=== PATIENT | male | born 1940 | race Caucasian/White ===

== ENCOUNTER 2020-09-25 19:17 | Inpatient (IN) | payer MEDICARE, BC ==
[~2020-09-25] VITALS: Ht 185.4 cm; Wt 83.9 kg
[2020-09-25] MEDS ORDERED: TRAZ-182 PO (20:39)
[2020-09-25] MEDS ORDERED: TAMS-3 PO (20:39)
[2020-09-25] MEDS ORDERED: BIMA2.5D5 EACHEYE (20:39)
[2020-09-25] MEDS ORDERED: ESCI-9 PO (20:39)
[2020-09-25] MEDS ORDERED: METF-495 PO (20:39)
[2020-09-25] MEDS ORDERED: ACET-73 PO (20:39)
[2020-09-25] MEDS ORDERED: ASCO500C18 PO (20:39)
[2020-09-25] MEDS ORDERED: NITR0.4T SL (20:39)
[2020-09-25] MEDS ORDERED: DIVA250T4 PO (20:39)
[2020-09-25] MEDS ORDERED: LORA-258 PO (20:39)
[2020-09-25] MEDS ORDERED: NITR100C11 PO (20:39)
[2020-09-25] MEDS ORDERED: ATOR40TA PO (20:39)
[2020-09-25] MEDS ORDERED: BRIM5DRO2 OP (20:39)
[2020-09-25] MEDS ORDERED: VIT1CAPS44 PO (20:39)
[2020-09-25] MEDS ORDERED: ASPI81TA31 PO (20:39)
[2020-09-25] MEDS ORDERED: ACET-2154 PO (20:39)
[2020-09-25] MEDS ORDERED: vitamin d PO (20:39)
[2020-09-25] MEDS ORDERED: PRIM50TA27 PO (20:39)
[2020-09-25 21:05] LABS: CARBON DIOXIDE 29 mmol/L (21-32); CHLORIDE 105 mmol/L (98-107); CREATININE 1.1 mg/dL (0.6-1.3); GLUCOSE 102 mg/dL (74-106); HEMATOCRIT 44.4 % (36.7-47.1); MEAN CORPUSCULAR HEMOGLOBIN 30.9 uug (23.8-33.4); MEAN CORPUSCULAR VOLUME 93.2 fL (73.0-96.2); PLATELET COUNT (AUTO) 150 K/uL (152-348); POTASSIUM 4.1 mmol/L (3.5-5.1); UREA NITROGEN, BLOOD 26 mg/dL (7-18)
[2020-09-25 21:09] LABS: ETHANOL < 3 MG/DL (0-0)
[2020-09-25 21:11] LABS: ALANINE AMINOTRANSFERASE 15 U/L (16-63); ALKALINE PHOSPHATASE 58 U/L (50-136); ASPARTATE AMINOTRANSFERASE 16 U/L (15-37); BILIRUBIN,DIRECT 0.1 mg/dL (0.0-0.2); BILIRUBIN,TOTAL 0.4 mg/dL (0.2-1.0); CREATINE KINASE, TOTAL 60 U/L (39-308); TOTAL PROTEIN, SERUM 6.8 g/dL (6.4-8.2)
[2020-09-25 21:19] LABS: ACETAMINOPHEN < 2.0 ug/mL (10-30)
[2020-09-25] MEDS ORDERED: breo INH (21:19)
[2020-09-25] MEDS ORDERED: MONT10TA22 PO (21:19)
[2020-09-25] MEDS ORDERED: LISI10TA29 PO (21:19)
[2020-09-25] MEDS ORDERED: RIVA20TA PO (21:19)
[2020-09-25] MEDS ORDERED: ALBU18HF2 IH (21:19)
[2020-09-25] MEDS ORDERED: AZEL23SP NS (21:19)
--- NOTE | 2020-09-25 21:58 | NUR ---
Charge nurse left voicemail message with Adalgisa regarding the need for PET team evaluation.
[2020-09-26] MEDS ORDERED: MAG HYDROX/AL HYDROX/SIMETH 30 ML LIQUID UDC PO PRN (00:45)
[2020-09-26] MEDS ORDERED: MAGNESIUM HYDROXIDE 30 ML LIQUID UDC PO PRN (00:45)
[2020-09-26] MEDS ORDERED: BLOOD SUGAR DIAGNOSTIC 1 EACH STRIP VI ONE (00:45)
--- NOTE | 2020-09-26 01:54 | NUR ---
PATIENT RECEIVED FROM ER VIA [facility] AT 0007. PATIENT ALERT/ORIENTED TO SELF, PATIENT DISORGANIZED, CONFUSED, AND CONFUSED. PATIENT IS UNSTEADY REQUIRES MAX ASSISTANCE. PATIENT RECEIVED A SHOWER, BODY ASSESSMENT RENDERED AND SKIN INTACT. PATIENT IS UNABLE TO ANSWER SIMPLE QUESTIONS ON SELF. PATIENT HAS FLAT AFFECT IS COOPERATIVE WITH CONSTANT REDIRECTION. NO CONTRABAND ONLY WITH EYE GLASSES. SAFE ENVIRONMENT PROVIDED, FREQUENT ROUNDING, AND CLUTTER FREE ENVIRONMENT. BED IN LOWEST POSITION, BED LOCKED, AND BED ALARM ON WHILE IN BED. PATIENT REFUSED ACCUCHECK UPON ADMISSION. THE PATIENT REQUIRES CONSTANT REDIRECTION.
[2020-09-26 06:03] VITALS: BP 160/77
[2020-09-26 07:30] VITALS: BP 151/87
--- NOTE | 2020-09-26 08:35 | NUR ---
FIREARMS REPORT: Budget Specialist completed and submitted a [employer] firearms report for 5150 grave disability certification. A copy of report has been placed in patient chart.
--- NOTE | 2020-09-26 09:45 | NUR ---
ADITYA Initial Discharge Plan: Patient resides at [facility] [place] [address] , [place], [address]([phone]) and will return back upon discharge. Patient's daughter, Vivi ([phone]) is involved in the patient's care. ADITYA will continue to work with patient, family, and MD to ensure a safe and proper discharge plan.
--- NOTE | 2020-09-26 09:46 | NUR ---
SW SNF Contact: ADITYA spoke with Nely at [facility] [place] [address] , [place], [address] ([phone]) who confirmed patient is welcome back once stable upon discharge.
--- NOTE | 2020-09-26 09:46 | NUR ---
ADITYA Family Contact: ADITYA contacted patient's daughter Vivi ([phone]) however unable to reach at this time.
--- NOTE | 2020-09-26 09:48 | NUR ---
Treatment Plan: Patient refused to sign treatment plan due to irritable mood.
[2020-09-26] MEDS: LORAZEPAM 0.5 MG TABLET PO PRN (15:58)
[2020-09-26 16:00] VITALS: BP 113/76
[2020-09-26] MEDS: DIVALPROEX SPRINKLE 125 MG CAP.SPRINK PO SCH (16:00)
[2020-09-26] MEDS ORDERED: ALBUTEROL SULFATE 2.5 MG/ 0.5 ML NEBU NEB PRN (18:30)
[2020-09-26] MEDS ORDERED: NITROGLYCERIN 0.4 MG/TAB BOTTLE SL PRN (18:30)
[2020-09-26] MEDS: QUETIAPINE FUMARATE 25 MG TABLET PO SCH (20:11)
[2020-09-26] MEDS: ATORVASTATIN 40 MG TABLET PO SCH (20:11)
[2020-09-26 20:16] VITALS: BP 117/63
[2020-09-26] MEDS: LATANOPROST OPHT DROP 2.5 ML BOTTLE EACHEYE SCH (20:41)
[2020-09-27 07:26] LABS: BILIRUBIN,TOTAL 0.7 mg/dL (0.2-1.0); CREATININE 0.9 mg/dL (0.6-1.3); POTASSIUM 3.8 mmol/L (3.5-5.1); TOTAL PROTEIN, SERUM 6.3 g/dL (6.4-8.2)
[2020-09-27 07:30] VITALS: BP 131/79
[2020-09-27] MEDS: DIVALPROEX SPRINKLE 125 MG CAP.SPRINK PO SCH ×2 (08:52→17:46)
[2020-09-27] MEDS: METFORMIN HCL 500 MG TABLET PO SCH (08:52)
[2020-09-27] MEDS: MONTELUKAST SODIUM 10 MG TABLET PO SCH (08:52)
[2020-09-27] MEDS: ASPIRIN 81 MG TAB.CHEW PO SCH (08:52)
[2020-09-27] MEDS: PRIMIDONE 50 MG TABLET PO SCH ×2 (08:53→17:48)
[2020-09-27] MEDS: TAMSULOSIN HCL 0.4 MG CAP.SR.24H PO SCH ×2 (08:53→17:46)
[2020-09-27] MEDS: ASCORBIC ACID 500 MG TABLET PO SCH (08:53)
[2020-09-27] MEDS: RIVAROXABAN 10 MG TABLET PO SCH (08:54)
[2020-09-27] MEDS: TIMOLOL MALEATE 0.5% OPHT DROP 5 ML BOTTLE OP SCH ×2 (08:55→17:46)
[2020-09-27] MEDS: LISINOPRIL 10 MG TABLET PO SCH (08:55)
[2020-09-27] MEDS: BRIMONIDINE 0.2% OPHT DROP 10 ML BOTTLE OP SCH ×2 (08:57→17:46)
[2020-09-27] MEDS ORDERED: Medication Not On Formulary EA (Vit C/E/Zn/Coppr/Lutein/Zeaxan (Preservision Areds 2 Sof PO SCH (09:00)
[2020-09-27 15:57] VITALS: BP 107/53
--- NOTE | 2020-09-27 17:32 | NUR ---
Gps/Electric Fork Operator- Extremely agitated, uncooperative, aggressive during his pm. care/hygiene, resistive to his care. 4 staff to assist him with his hygiene. r/t to combative/aggresive behavior.
[2020-09-27] MEDS: LORAZEPAM 0.5 MG TABLET PO PRN (19:32)
[2020-09-27 20:00] VITALS: BP 103/60
[2020-09-27] MEDS: LATANOPROST OPHT DROP 2.5 ML BOTTLE EACHEYE SCH (20:53)
[2020-09-27] MEDS: ATORVASTATIN 40 MG TABLET PO SCH (20:53)
[2020-09-27] MEDS: QUETIAPINE FUMARATE 25 MG TABLET PO SCH (20:54)
[2020-09-28 07:30] VITALS: BP 128/55
[2020-09-28] MEDS: DIVALPROEX SPRINKLE 125 MG CAP.SPRINK PO SCH ×2 (09:17→16:45)
[2020-09-28] MEDS: METFORMIN HCL 500 MG TABLET PO SCH (09:17)
[2020-09-28] MEDS: MONTELUKAST SODIUM 10 MG TABLET PO SCH (09:17)
[2020-09-28] MEDS: TAMSULOSIN HCL 0.4 MG CAP.SR.24H PO SCH ×2 (09:19→16:45)
[2020-09-28] MEDS: RIVAROXABAN 10 MG TABLET PO SCH (09:19)
[2020-09-28] MEDS: PRIMIDONE 50 MG TABLET PO SCH ×2 (09:20→16:45)
[2020-09-28] MEDS: ASPIRIN 81 MG TAB.CHEW PO SCH (09:20)
[2020-09-28] MEDS: LISINOPRIL 10 MG TABLET PO SCH (09:20)
[2020-09-28] MEDS: ASCORBIC ACID 500 MG TABLET PO SCH (09:21)
[2020-09-28] MEDS: TIMOLOL MALEATE 0.5% OPHT DROP 5 ML BOTTLE OP SCH ×2 (09:21→17:24)
[2020-09-28] MEDS: BRIMONIDINE 0.2% OPHT DROP 10 ML BOTTLE OP SCH ×2 (09:21→17:24)
--- NOTE | 2020-09-28 14:39 | NUR ---
Gps/Senior Planning Manager-Ambulated to the bathroom by P.TRa with FWW, needing verbal cueing in sequencing his tasks, continent of his bowels, extra large, assisted with his hygiene. Patient needed to be told first what staff is planning to do, was cooperative during his pm care. Kept up in his prachi-chair, by the Nurses station
[2020-09-28] MEDS: ACETAMINOPHEN 325 MG TABLET PO PRN (14:56)
[2020-09-28] MEDS: LORAZEPAM 0.5 MG TABLET PO PRN (14:56)
[2020-09-28 16:00] VITALS: BP 119/57
[2020-09-28 20:00] VITALS: BP 109/70
[2020-09-28] MEDS: QUETIAPINE FUMARATE 25 MG TABLET PO SCH (20:09)
[2020-09-28] MEDS: ATORVASTATIN 40 MG TABLET PO SCH (20:09)
[2020-09-28] MEDS: LATANOPROST OPHT DROP 2.5 ML BOTTLE EACHEYE SCH (20:10)
[2020-09-28] MEDS: ZOLPIDEM 5 MG TABLET PO PRN (21:56)
--- NOTE | 2020-09-29 06:39 | NUR ---
GPS: REMAIN CALM AND COOPERATIVE. ASSISTED WITH ADL'S. SLEPT 7.15 HRS THROUGH THE NIGHT AFTER AMBIEN GIVEN FOR SLEEP. RESTING IN BED COMFORTABLY. NO AGITATION NOTED. CONTINUE PLAN OF CARE,
[2020-09-29 07:48] VITALS: BP 106/64
[2020-09-29] MEDS: ASPIRIN 81 MG TAB.CHEW PO SCH (08:41)
[2020-09-29] MEDS: METFORMIN HCL 500 MG TABLET PO SCH (08:41)
[2020-09-29] MEDS: TAMSULOSIN HCL 0.4 MG CAP.SR.24H PO SCH ×2 (08:41→16:33)
[2020-09-29] MEDS: DIVALPROEX SPRINKLE 125 MG CAP.SPRINK PO SCH ×2 (08:42→16:33)
[2020-09-29] MEDS: RIVAROXABAN 10 MG TABLET PO SCH (08:42)
[2020-09-29] MEDS: ASCORBIC ACID 500 MG TABLET PO SCH (08:42)
[2020-09-29] MEDS: TIMOLOL MALEATE 0.5% OPHT DROP 5 ML BOTTLE OP SCH ×2 (08:43→16:33)
[2020-09-29] MEDS: LISINOPRIL 10 MG TABLET PO SCH (08:43)
[2020-09-29] MEDS: BRIMONIDINE 0.2% OPHT DROP 10 ML BOTTLE OP SCH ×2 (08:43→16:34)
[2020-09-29] MEDS: PRIMIDONE 50 MG TABLET PO SCH ×2 (08:44→16:33)
[2020-09-29] MEDS: MONTELUKAST SODIUM 10 MG TABLET PO SCH (08:44)
--- NOTE | 2020-09-29 14:55 | NUR ---
GPS: Nursing Notes: Severe Agitation: Patient is awake and responding to his name, poor anger management, resistant with nursing care, sundown behavior, overly disruptive by shouting profanities toward staff, threatening staff, "FUCK.. I AM GOING TO CUT YOUR HEAD..", talking incoherently, constantly punching the table and the wall next to him without any regard for his safety, setting limits, but unable to be redirected, restless behavior, clenching his fists and threatening staff when getting near to him, overly disruptive by shouting treats and profanities toward staff, paranoid behavior, Dr. Stout - covering psychiatrist for Dr. Leonid man, continue to monitor for safety, continue with treatment plan.
[2020-09-29] MEDS ORDERED: LORAZEPAM 2 MG/1 ML VIAL IM STA (14:58)
[2020-09-29] MEDS ORDERED: chlorproMAZINE 50 MG/2 ML AMPUL IM STA (14:58)
--- NOTE | 2020-09-29 15:16 | NUR ---
GPS: Nursing Notes: Chemical Restraint: Patient continue to be overly disruptive by constantly punching the table or the wall near him without any regard for his safety, shouting incoherently, verbal abusive, using profanities toward staff, threatening staff, "FUCK...I AM GOING TO CUT YOUR HEAD..", paranoid behavior, setting limits, but unable to follow directions, clenching his fists when getting near him, restless behavior, threatening physical harm to staff, violent outburst without provocation, Dr Stout called back and ordered: Thorazine 50mg IM and Ativan 1mg IM STAT X1 for severe agitation, R=20, IM medications were given at this time, continue to monitor for safety, continue with treatment plan.
--- NOTE | 2020-09-29 15:46 | NUR ---
GPS: Nursing Notes: Reassessment of Chemical Restraint: Patient is awake and responding to his name, poor impulse control, patient stopped punching the table or the wall next to him, R=20, confused, disoriented, disorganized, resistant with nursing care, gets easily irritable when assisting him with his ADL's, redirected and reoriented during shift, IM medications were helpful, continue to monitor for safety, continue with treatment plan.
[2020-09-29 16:58] VITALS: BP 120/78
--- NOTE | 2020-09-29 18:12 | NUR ---
GPS: Nursing Notes: Destructive Behavior to Others: Patient is awake and responding to his name, confused, disoriented, impaired judgment, poor insight, sundown behavior, violent outburst without provocation, talking incoherently, believes that he is going back home, redirected and reoriented during shift, but gets easily irritable, resistant with nursing care, poor anger management, unable to formulate a viable plan for self care, gets verbal abusive at times, continue to monitor for safety, continue with treatment plan.
[2020-09-29 19:58] VITALS: BP 116/66
[2020-09-29] MEDS: ATORVASTATIN 40 MG TABLET PO SCH (20:10)
[2020-09-29] MEDS: QUETIAPINE FUMARATE 25 MG TABLET PO SCH (20:11)
[2020-09-29] MEDS: LATANOPROST OPHT DROP 2.5 ML BOTTLE EACHEYE SCH (20:12)
[2020-09-30] MEDS: ZOLPIDEM 5 MG TABLET PO PRN (00:08)
--- NOTE | 2020-09-30 06:39 | NUR ---
Received Pt awake in bed. Pt is A+O x0. Pt is completely disoriented, and does not know his name. Pt is disorganized and altered in thought process. and requires total assistance for all ADLs. Resistant and uncooperative with care, Pt is aggressive and combative when care is rendered. Pt was uncooperative with treatment and medications. Medications administered crushed in applesauce.
[2020-09-30] MEDS: LORAZEPAM 0.5 MG TABLET PO PRN ×4 (07:32→21:24)
[2020-09-30 08:15] VITALS: BP 111/69
[2020-09-30] MEDS: ASPIRIN 81 MG TAB.CHEW PO SCH (08:26)
[2020-09-30] MEDS: DIVALPROEX SPRINKLE 125 MG CAP.SPRINK PO SCH ×2 (08:26→16:38)
[2020-09-30] MEDS: PRIMIDONE 50 MG TABLET PO SCH ×2 (08:26→16:41)
[2020-09-30] MEDS: TAMSULOSIN HCL 0.4 MG CAP.SR.24H PO SCH ×2 (08:27→16:38)
[2020-09-30] MEDS: RIVAROXABAN 10 MG TABLET PO SCH (08:27)
[2020-09-30] MEDS: MONTELUKAST SODIUM 10 MG TABLET PO SCH (08:27)
[2020-09-30] MEDS: TIMOLOL MALEATE 0.5% OPHT DROP 5 ML BOTTLE OP SCH ×2 (08:28→16:41)
[2020-09-30] MEDS: LISINOPRIL 10 MG TABLET PO SCH (08:28)
[2020-09-30] MEDS: ASCORBIC ACID 500 MG TABLET PO SCH (08:28)
[2020-09-30] MEDS: METFORMIN HCL 500 MG TABLET PO SCH (08:28)
[2020-09-30] MEDS: BRIMONIDINE 0.2% OPHT DROP 10 ML BOTTLE OP SCH ×2 (08:28→16:42)
[2020-09-30] MEDS: Z GUARD REMEDY PASTE 57 GM TUBE TOP SCH ×2 (08:29→20:08)
[2020-09-30] MEDS: ACETAMINOPHEN 325 MG TABLET PO PRN (12:16)
--- NOTE | 2020-09-30 14:44 | NUR ---
GPS: Nursing Notes: Destructive Behavior to Others: Patient is awake and responding to his name, impaired judgment, resistant with nursing care, clenching his fist and punching staff when assisting him changing his wet diaper, poor anger management, paranoid behavior, gets easily irritable when redirected, confused, talking incoherently, disoriented, poor insight, unable to formulate a viable plan for self care, uncooperative with nursing care, continue to monitor for safety, continue with treatment plan.
[2020-09-30 16:18] VITALS: BP 104/61
[2020-09-30 19:49] VITALS: BP 110/64
[2020-09-30] MEDS: ATORVASTATIN 40 MG TABLET PO SCH (20:07)
[2020-09-30] MEDS: QUETIAPINE FUMARATE 25 MG TABLET PO SCH (20:07)
[2020-09-30] MEDS: LATANOPROST OPHT DROP 2.5 ML BOTTLE EACHEYE SCH (20:08)
[2020-10-01] MEDS: ZOLPIDEM 5 MG TABLET PO PRN (01:01)
[2020-10-01 07:30] VITALS: BP 107/66
[2020-10-01] MEDS: LORAZEPAM 0.5 MG TABLET PO PRN ×2 (07:40→12:13)
[2020-10-01] MEDS: ASPIRIN 81 MG TAB.CHEW PO SCH (08:13)
[2020-10-01] MEDS: MONTELUKAST SODIUM 10 MG TABLET PO SCH (08:13)
[2020-10-01] MEDS: METFORMIN HCL 500 MG TABLET PO SCH (08:13)
[2020-10-01] MEDS: PRIMIDONE 50 MG TABLET PO SCH ×2 (08:13→16:46)
[2020-10-01] MEDS: DIVALPROEX SPRINKLE 125 MG CAP.SPRINK PO SCH ×2 (08:13→16:45)
[2020-10-01] MEDS: LISINOPRIL 10 MG TABLET PO SCH (08:13)
[2020-10-01] MEDS: TAMSULOSIN HCL 0.4 MG CAP.SR.24H PO SCH ×2 (08:13→16:45)
[2020-10-01] MEDS: ASCORBIC ACID 500 MG TABLET PO SCH (08:13)
[2020-10-01] MEDS: TIMOLOL MALEATE 0.5% OPHT DROP 5 ML BOTTLE OP SCH ×2 (08:14→16:45)
[2020-10-01] MEDS: BRIMONIDINE 0.2% OPHT DROP 10 ML BOTTLE OP SCH ×2 (08:14→16:45)
[2020-10-01] MEDS: RIVAROXABAN 10 MG TABLET PO SCH (08:15)
[2020-10-01] MEDS: Z GUARD REMEDY PASTE 57 GM TUBE TOP SCH ×2 (08:16→20:47)
[2020-10-01] MEDS: ACETAMINOPHEN 325 MG TABLET PO PRN (12:13)
--- NOTE | 2020-10-01 12:16 | NUR ---
ADITYA PC Hearing: Patient had 5250 probable cause hearing today and it was upheld for grave disability.
[2020-10-01 15:19] VITALS: BP 100/80
[2020-10-01] MEDS: QUETIAPINE FUMARATE 25 MG TABLET PO SCH ×2 (16:45→20:47)
[2020-10-01 20:00] VITALS: BP 106/68
[2020-10-01] MEDS: ATORVASTATIN 40 MG TABLET PO SCH (20:47)
[2020-10-01] MEDS: LATANOPROST OPHT DROP 2.5 ML BOTTLE EACHEYE SCH (20:48)
[2020-10-02 07:30] VITALS: BP 111/50
[2020-10-02] MEDS: TIMOLOL MALEATE 0.5% OPHT DROP 5 ML BOTTLE OP SCH ×2 (08:19→16:16)
[2020-10-02] MEDS: ASCORBIC ACID 500 MG TABLET PO SCH (08:19)
[2020-10-02] MEDS: DIVALPROEX SPRINKLE 125 MG CAP.SPRINK PO SCH ×3 (08:19→16:15)
[2020-10-02] MEDS: MONTELUKAST SODIUM 10 MG TABLET PO SCH (08:19)
[2020-10-02] MEDS: TAMSULOSIN HCL 0.4 MG CAP.SR.24H PO SCH ×2 (08:19→16:15)
[2020-10-02] MEDS: BRIMONIDINE 0.2% OPHT DROP 10 ML BOTTLE OP SCH ×2 (08:19→16:15)
[2020-10-02] MEDS: ASPIRIN 81 MG TAB.CHEW PO SCH (08:20)
[2020-10-02] MEDS: LISINOPRIL 10 MG TABLET PO SCH (08:20)
[2020-10-02] MEDS: PRIMIDONE 50 MG TABLET PO SCH ×2 (08:20→16:16)
[2020-10-02] MEDS: QUETIAPINE FUMARATE 25 MG TABLET PO SCH ×3 (08:20→20:42)
[2020-10-02] MEDS: RIVAROXABAN 10 MG TABLET PO SCH (08:22)
[2020-10-02] MEDS: Z GUARD REMEDY PASTE 57 GM TUBE TOP SCH ×2 (08:22→20:43)
[2020-10-02] MEDS: METFORMIN HCL 500 MG TABLET PO SCH (08:23)
[2020-10-02] MEDS ORDERED: DIVALPROEX SPRINKLE 125 MG CAP.SPRINK PO SCH (12:15)
[2020-10-02 15:27] VITALS: BP 110/45
--- NOTE | 2020-10-02 20:00 | NUR ---
RECEIVED PATIENT IN HIS ROOM IN BED. HE IS NOTED A/O X 1 CONFUSED, HYPERVERBAL, RESTLESS WITH DISORGANIZE SPEECH, AFFECT IS INCONGRUENT, MOOD IS LABILE. PATIENT GETS AGGRESSIVE AND COMBATIVE WHEN HELPING HIM WITH ADLs AND TAD-CARE. HE IS UNABLE TO HAVE A MEANINGFUL CONVERSATION WITH THIS VIDEO GAME SCRIPT WRITER. SHE REQUIRES REDIRECTIONS AND REASSURANCE. PATIENT WAS GIVEN PO FLUIDS AND SNACKS. V/S STABLE. SAFETY AND FALL PRECAUTION IN PLACE, WILL CONTINUE TO MONITOR,
[2020-10-02 20:03] VITALS: BP 112/51
[2020-10-02] MEDS: LATANOPROST OPHT DROP 2.5 ML BOTTLE EACHEYE SCH (20:41)
[2020-10-02] MEDS: ATORVASTATIN 40 MG TABLET PO SCH (20:42)
[2020-10-02] MEDS: ZOLPIDEM 5 MG TABLET PO PRN (22:17)
[2020-10-03 07:30] VITALS: BP 116/66
[2020-10-03] MEDS: BRIMONIDINE 0.2% OPHT DROP 10 ML BOTTLE OP SCH ×2 (08:36→16:13)
[2020-10-03] MEDS: TIMOLOL MALEATE 0.5% OPHT DROP 5 ML BOTTLE OP SCH ×2 (08:37→16:12)
[2020-10-03] MEDS: ASPIRIN 81 MG TAB.CHEW PO SCH (08:38)
[2020-10-03] MEDS: METFORMIN HCL 500 MG TABLET PO SCH (08:39)
[2020-10-03] MEDS: DIVALPROEX SPRINKLE 125 MG CAP.SPRINK PO SCH ×3 (08:39→16:11)
[2020-10-03] MEDS: LISINOPRIL 10 MG TABLET PO SCH (08:40)
[2020-10-03] MEDS: QUETIAPINE FUMARATE 25 MG TABLET PO SCH ×3 (08:40→21:44)
[2020-10-03] MEDS: ASCORBIC ACID 500 MG TABLET PO SCH (08:40)
[2020-10-03] MEDS: MONTELUKAST SODIUM 10 MG TABLET PO SCH (08:40)
[2020-10-03] MEDS: PRIMIDONE 50 MG TABLET PO SCH ×2 (08:41→16:11)
[2020-10-03] MEDS: TAMSULOSIN HCL 0.4 MG CAP.SR.24H PO SCH ×2 (08:46→16:11)
[2020-10-03] MEDS: RIVAROXABAN 10 MG TABLET PO SCH (08:49)
[2020-10-03] MEDS: Z GUARD REMEDY PASTE 57 GM TUBE TOP SCH ×2 (08:49→21:43)
[2020-10-03 16:15] VITALS: BP 112/85
--- NOTE | 2020-10-03 17:56 | NUR ---
Received patient awake, needs two person assist from bed to gerichair. He is alert/orientedx2, confusion noted. Unable to make needs known. His mood is labile. He gets aggressive and needs reorientation. Hyperverbal, noted with disorganized speech. Assisted with ADLs. Safety precaution maintained. Will continue to monitor.
[2020-10-03 21:25] VITALS: BP 97/55
[2020-10-03] MEDS: LATANOPROST OPHT DROP 2.5 ML BOTTLE EACHEYE SCH (21:44)
[2020-10-03] MEDS: ATORVASTATIN 40 MG TABLET PO SCH (21:44)
[2020-10-03] MEDS: ZOLPIDEM 5 MG TABLET PO PRN (23:45)
[2020-10-04] MEDS: ASPIRIN 81 MG TAB.CHEW PO SCH (09:19)
[2020-10-04] MEDS: RIVAROXABAN 10 MG TABLET PO SCH (09:22)
[2020-10-04] MEDS: QUETIAPINE FUMARATE 25 MG TABLET PO SCH ×3 (09:24→20:36)
[2020-10-04] MEDS: METFORMIN HCL 500 MG TABLET PO SCH ×2 (09:31→10:10)
[2020-10-04] MEDS: TAMSULOSIN HCL 0.4 MG CAP.SR.24H PO SCH ×2 (09:32→17:15)
[2020-10-04] MEDS: ASCORBIC ACID 500 MG TABLET PO SCH (09:32)
[2020-10-04] MEDS: LISINOPRIL 10 MG TABLET PO SCH (09:34)
[2020-10-04] MEDS: DIVALPROEX SPRINKLE 125 MG CAP.SPRINK PO SCH ×3 (09:36→17:18)
[2020-10-04] MEDS: MONTELUKAST SODIUM 10 MG TABLET PO SCH (09:42)
[2020-10-04] MEDS: PRIMIDONE 50 MG TABLET PO SCH ×2 (09:43→17:16)
[2020-10-04] MEDS: TIMOLOL MALEATE 0.5% OPHT DROP 5 ML BOTTLE OP SCH ×2 (09:47→17:13)
[2020-10-04] MEDS: BRIMONIDINE 0.2% OPHT DROP 10 ML BOTTLE OP SCH ×2 (09:48→17:12)
[2020-10-04] MEDS: Z GUARD REMEDY PASTE 57 GM TUBE TOP SCH ×2 (09:53→20:36)
[2020-10-04 16:06] VITALS: BP 112/63
[2020-10-04] MEDS: LATANOPROST OPHT DROP 2.5 ML BOTTLE EACHEYE SCH (20:35)
[2020-10-04] MEDS: ATORVASTATIN 40 MG TABLET PO SCH (20:36)
[2020-10-04] MEDS: ZOLPIDEM 5 MG TABLET PO PRN (22:24)
[2020-10-05 07:30] VITALS: BP 92/59
[2020-10-05] MEDS: BRIMONIDINE 0.2% OPHT DROP 10 ML BOTTLE OP SCH ×2 (08:17→17:00)
[2020-10-05] MEDS: TIMOLOL MALEATE 0.5% OPHT DROP 5 ML BOTTLE OP SCH ×2 (08:17→17:00)
[2020-10-05] MEDS: Z GUARD REMEDY PASTE 57 GM TUBE TOP SCH ×2 (08:18→20:14)
[2020-10-05] MEDS: DIVALPROEX SPRINKLE 125 MG CAP.SPRINK PO SCH ×3 (08:44→16:59)
[2020-10-05] MEDS: TAMSULOSIN HCL 0.4 MG CAP.SR.24H PO SCH ×2 (08:44→16:59)
[2020-10-05] MEDS: MONTELUKAST SODIUM 10 MG TABLET PO SCH (08:44)
[2020-10-05] MEDS: ASCORBIC ACID 500 MG TABLET PO SCH (08:44)
[2020-10-05] MEDS: METFORMIN HCL 500 MG TABLET PO SCH (08:44)
[2020-10-05] MEDS: PRIMIDONE 50 MG TABLET PO SCH ×2 (08:45→16:59)
[2020-10-05] MEDS: ASPIRIN 81 MG TAB.CHEW PO SCH (08:45)
[2020-10-05] MEDS: QUETIAPINE FUMARATE 25 MG TABLET PO SCH ×3 (08:45→20:15)
[2020-10-05] MEDS: RIVAROXABAN 10 MG TABLET PO SCH (08:47)
[2020-10-05] MEDS: LISINOPRIL 10 MG TABLET PO SCH (09:00)
[2020-10-05 16:00] VITALS: BP 122/64
[2020-10-05 20:07] VITALS: BP 115/71
[2020-10-05] MEDS: LATANOPROST OPHT DROP 2.5 ML BOTTLE EACHEYE SCH (20:14)
[2020-10-05] MEDS: ATORVASTATIN 40 MG TABLET PO SCH (20:15)
[2020-10-05] MEDS: ZOLPIDEM 5 MG TABLET PO PRN (23:22)
--- NOTE | 2020-10-06 05:47 | NUR ---
Pt awake in bed, no s/s of distress. No change in LOC. Compliant with meds during the shift. Kept clean, dry and comfortable. Skin care provided. Cooperative with care. Safety precautions in place; q15 min checks done.
[2020-10-06 07:51] VITALS: BP 132/86
[2020-10-06] MEDS: TIMOLOL MALEATE 0.5% OPHT DROP 5 ML BOTTLE OP SCH ×2 (08:12→16:48)
[2020-10-06] MEDS: BRIMONIDINE 0.2% OPHT DROP 10 ML BOTTLE OP SCH ×2 (08:12→16:58)
[2020-10-06] MEDS: DIVALPROEX SPRINKLE 125 MG CAP.SPRINK PO SCH ×3 (08:13→16:58)
[2020-10-06] MEDS: TAMSULOSIN HCL 0.4 MG CAP.SR.24H PO SCH ×2 (08:13→16:58)
[2020-10-06] MEDS: LORAZEPAM 0.5 MG TABLET PO PRN ×2 (08:13→12:47)
[2020-10-06] MEDS: METFORMIN HCL 500 MG TABLET PO SCH (08:13)
[2020-10-06] MEDS: ASPIRIN 81 MG TAB.CHEW PO SCH (08:13)
[2020-10-06] MEDS: QUETIAPINE FUMARATE 25 MG TABLET PO SCH ×3 (08:14→20:38)
[2020-10-06] MEDS: PRIMIDONE 50 MG TABLET PO SCH ×2 (08:14→16:58)
[2020-10-06] MEDS: ASCORBIC ACID 500 MG TABLET PO SCH (08:14)
[2020-10-06] MEDS: RIVAROXABAN 10 MG TABLET PO SCH (08:15)
[2020-10-06] MEDS: Z GUARD REMEDY PASTE 57 GM TUBE TOP SCH ×2 (08:16→20:38)
[2020-10-06] MEDS: LISINOPRIL 10 MG TABLET PO SCH (08:17)
[2020-10-06] MEDS: MONTELUKAST SODIUM 10 MG TABLET PO SCH (10:04)
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
[2020-10-06] MEDS ORDERED: QUETIAPINE FUMARATE 25 MG TABLET PO PRN (15:45)
[2020-10-06 16:22] VITALS: BP 112/66
[2020-10-06 20:17] VITALS: BP 124/52
[2020-10-06] MEDS: LATANOPROST OPHT DROP 2.5 ML BOTTLE EACHEYE SCH (20:38)
[2020-10-06] MEDS: ATORVASTATIN 40 MG TABLET PO SCH (20:38)
[2020-10-07] MEDS: ZOLPIDEM 5 MG TABLET PO PRN (00:27)
[2020-10-07] MEDS: RIVAROXABAN 10 MG TABLET PO SCH (08:14)
[2020-10-07] MEDS: ASCORBIC ACID 500 MG TABLET PO SCH (08:14)
[2020-10-07] MEDS: TAMSULOSIN HCL 0.4 MG CAP.SR.24H PO SCH ×2 (08:15→17:30)
[2020-10-07] MEDS: QUETIAPINE FUMARATE 25 MG TABLET PO SCH ×3 (08:15→20:46)
[2020-10-07] MEDS: PRIMIDONE 50 MG TABLET PO SCH ×2 (08:15→17:31)
[2020-10-07] MEDS: ASPIRIN 81 MG TAB.CHEW PO SCH (08:15)
[2020-10-07] MEDS: LORAZEPAM 0.5 MG TABLET PO PRN (08:15)
[2020-10-07] MEDS: DIVALPROEX SPRINKLE 125 MG CAP.SPRINK PO SCH ×3 (08:15→17:30)
[2020-10-07] MEDS: LISINOPRIL 10 MG TABLET PO SCH (08:16)
[2020-10-07] MEDS: METFORMIN HCL 500 MG TABLET PO SCH (08:16)
[2020-10-07] MEDS: MONTELUKAST SODIUM 10 MG TABLET PO SCH (08:16)
[2020-10-07] MEDS: BRIMONIDINE 0.2% OPHT DROP 10 ML BOTTLE OP SCH ×2 (08:39→17:32)
[2020-10-07] MEDS: Z GUARD REMEDY PASTE 57 GM TUBE TOP SCH ×2 (08:40→20:46)
[2020-10-07] MEDS: TIMOLOL MALEATE 0.5% OPHT DROP 5 ML BOTTLE OP SCH ×2 (08:40→17:29)
[2020-10-07 09:13] LABS: MEAN CORPUSCULAR HEMOGLOBIN 31.3 uug (23.8-33.4); MEAN CORPUSCULAR VOLUME 93.3 fL (73.0-96.2); PLATELET COUNT (AUTO) 163 K/uL (152-348)
[2020-10-07 09:17] VITALS: BP 122/74
[2020-10-07 09:33] LABS: BILIRUBIN,TOTAL 0.7 mg/dL (0.2-1.0); POTASSIUM 3.9 mmol/L (3.5-5.1); TOTAL PROTEIN, SERUM 7.3 g/dL (6.4-8.2)
--- NOTE | 2020-10-07 14:38 | NUR ---
This patient continues to insult, threaten and be combative with the staff providing care. This telegraphic typewriter installer is unable to engage in a conversation with the patient d/t the patient confusion and his words are nonsensical. Despite talking to the patient in a calm manor and trying to explaining the situation, the patient yells, grits his teeth and makes threatening statements. 2 staff and security is needed when providing frequent catracho care. Monitoring behavior escalation and patient safety.
[2020-10-07 15:03] LABS: EOSINOPHILS % (MANUAL) 2 % (0-8); LYMPHOCYTES % (MANUAL) 22 % (20-40); MONOCYTES % (MANUAL) 24 % (2-10); NEUTROPHILS % (MANUAL) 52 % (42-75)
[2020-10-07 16:12] VITALS: BP 135/78
--- NOTE | 2020-10-07 20:00 | NUR ---
RECEIVED PATIENT IN THE HALLWAY SITTING IN A LAYNE CHAIR NEAR THE NURSING STATION. PATIENT NOTED AWAKE A/O X 1. NOTED CALM AND PLEASANT UPON APPROACHED. HE CONTINUE WITH DISORGANIZE SPEECH, TANGENTAL. PT IS A POOR HISTORIAN. V/S STABLE. PO FLUIDS AND SNACKS WERE GIVEN. SAFETY AND FALL PRECAUTION ARE IN PLACE. WILL CONTINUE TO MONITOR.
[2020-10-07 20:18] VITALS: BP 119/77
[2020-10-07] MEDS: ATORVASTATIN 40 MG TABLET PO SCH (20:46)
[2020-10-07] MEDS: LATANOPROST OPHT DROP 2.5 ML BOTTLE EACHEYE SCH (20:51)
--- NOTE | 2020-10-07 23:30 | NUR ---
URINE WAS ABLE TO BE COLLECTED AND WAS SENT TO LABS FOR URINALYSIS AND C/S. WILL CONTINUE TO MONITOR.
[2020-10-08 00:02] LABS: *BILIRUBIN,URIN NEGATIVE (NEGATIVE); *BLOOD, URINE 2+ (NEGATIVE); *CLARITY,URINE CLOUDY (CLEAR); *COLOR,URINE YELLOW (YELLOW); *KETONES,URINE NEGATIVE (NEGATIVE); *UROBILINOGEN,URINE 0.2 E.U./dl (NORMAL); LEUKOCYTE ESTERASE ,URINE 3+ (NEGATIVE); NITRITE, URINE NEGATIVE (NEGATIVE); PH,URINE 5.5 (5.0-8.0); UGLUCOSE NEGATIVE (NEGATIVE)
[2020-10-08 00:15] LABS: BACTERIA,URINE MANY /HPF (NONE SEEN); SQUAMOUS EPITHELIAL CELL,UR FEW /HPF (NONE SEEN); WBC,URINE TNTC /HPF (0-3)
[2020-10-08] MEDS: ZOLPIDEM 5 MG TABLET PO PRN (00:38)
[2020-10-08 08:00] VITALS: BP 152/92
[2020-10-08] MEDS: METFORMIN HCL 500 MG TABLET PO SCH (08:53)
[2020-10-08] MEDS: DIVALPROEX SPRINKLE 125 MG CAP.SPRINK PO SCH ×4 (08:53→20:05)
[2020-10-08] MEDS: TAMSULOSIN HCL 0.4 MG CAP.SR.24H PO SCH ×2 (08:53→16:53)
[2020-10-08] MEDS: QUETIAPINE FUMARATE 25 MG TABLET PO SCH ×3 (08:54→20:06)
[2020-10-08] MEDS: LISINOPRIL 10 MG TABLET PO SCH (08:54)
[2020-10-08] MEDS: ASPIRIN 81 MG TAB.CHEW PO SCH (08:54)
[2020-10-08] MEDS: ASCORBIC ACID 500 MG TABLET PO SCH (08:54)
[2020-10-08] MEDS: MONTELUKAST SODIUM 10 MG TABLET PO SCH (08:58)
[2020-10-08] MEDS: PRIMIDONE 50 MG TABLET PO SCH ×2 (08:58→16:56)
[2020-10-08] MEDS: TIMOLOL MALEATE 0.5% OPHT DROP 5 ML BOTTLE OP SCH ×2 (08:58→16:55)
[2020-10-08] MEDS: BRIMONIDINE 0.2% OPHT DROP 10 ML BOTTLE OP SCH ×2 (08:59→16:54)
[2020-10-08] MEDS: Z GUARD REMEDY PASTE 57 GM TUBE TOP SCH ×2 (09:02→20:06)
[2020-10-08] MEDS: RIVAROXABAN 10 MG TABLET PO SCH (09:03)
[2020-10-08 19:58] VITALS: BP 132/72
[2020-10-08] MEDS: LATANOPROST OPHT DROP 2.5 ML BOTTLE EACHEYE SCH (20:05)
[2020-10-08] MEDS: ATORVASTATIN 40 MG TABLET PO SCH (20:05)
[2020-10-08] MEDS: LORAZEPAM 0.5 MG TABLET PO PRN (21:06)
[2020-10-09 07:30] VITALS: BP 122/83
[2020-10-09] MEDS: DIVALPROEX SPRINKLE 125 MG CAP.SPRINK PO SCH ×4 (08:19→20:11)
[2020-10-09] MEDS: MONTELUKAST SODIUM 10 MG TABLET PO SCH (08:20)
[2020-10-09] MEDS: ASPIRIN 81 MG TAB.CHEW PO SCH (08:20)
[2020-10-09] MEDS: RIVAROXABAN 10 MG TABLET PO SCH (08:20)
[2020-10-09] MEDS: TAMSULOSIN HCL 0.4 MG CAP.SR.24H PO SCH ×2 (08:20→16:52)
[2020-10-09] MEDS: QUETIAPINE FUMARATE 25 MG TABLET PO SCH ×3 (08:20→20:11)
[2020-10-09] MEDS: PRIMIDONE 50 MG TABLET PO SCH ×2 (08:21→16:52)
[2020-10-09] MEDS: ASCORBIC ACID 500 MG TABLET PO SCH (08:21)
[2020-10-09] MEDS: METFORMIN HCL 500 MG TABLET PO SCH (08:21)
[2020-10-09] MEDS: LISINOPRIL 10 MG TABLET PO SCH (08:22)
[2020-10-09] MEDS: BRIMONIDINE 0.2% OPHT DROP 10 ML BOTTLE OP SCH ×2 (08:22→16:53)
[2020-10-09] MEDS: Z GUARD REMEDY PASTE 57 GM TUBE TOP SCH ×2 (08:23→20:46)
[2020-10-09] MEDS: TIMOLOL MALEATE 0.5% OPHT DROP 5 ML BOTTLE OP SCH ×2 (08:23→16:53)
[2020-10-09] MEDS: LORAZEPAM 0.5 MG TABLET PO PRN ×2 (12:19→16:52)
[2020-10-09] MEDS ORDERED: levoFLOXacin 500 MG TABLET PO SCH (14:30)
[2020-10-09 15:07] VITALS: BP 114/76
[2020-10-09] MEDS: CEphaleXIN 500 MG CAPSULE PO SCH ×2 (16:52→21:25)
[2020-10-09] MEDS: ATORVASTATIN 40 MG TABLET PO SCH (20:11)
[2020-10-09] MEDS: LATANOPROST OPHT DROP 2.5 ML BOTTLE EACHEYE SCH (20:23)
[2020-10-09 20:32] VITALS: BP 105/51
[2020-10-10] MEDS: LORAZEPAM 0.5 MG TABLET PO PRN (02:11)
--- NOTE | 2020-10-10 02:11 | NUR ---
nsg: patient is agitated,trying to get out of bed. disrobing him self. ativan 0.5 mg po given.
--- NOTE | 2020-10-10 03:11 | NUR ---
resting in bed quietly. prn for anxiety effective.
[2020-10-10] MEDS: CEphaleXIN 500 MG CAPSULE PO SCH ×3 (06:33→21:00)
--- NOTE | 2020-10-10 06:53 | NUR ---
GPS: Resting in prachi chair near nursing station for safety. no s/s of distress. assisted with adl's. No change in LOC. Compliant with meds during the shift. Kept clean, dry and comfortable. Skin care provided. Cooperative with care. slept 5.30 hrs through the night.Safety precautions in place; q15 min checks done.
[2020-10-10 07:30] VITALS: BP 96/50
[2020-10-10] MEDS: TIMOLOL MALEATE 0.5% OPHT DROP 5 ML BOTTLE OP SCH ×2 (08:19→16:05)
[2020-10-10] MEDS: BRIMONIDINE 0.2% OPHT DROP 10 ML BOTTLE OP SCH ×2 (08:20→16:05)
[2020-10-10] MEDS: PRIMIDONE 50 MG TABLET PO SCH ×2 (08:21→16:04)
[2020-10-10] MEDS: QUETIAPINE FUMARATE 25 MG TABLET PO SCH ×3 (08:23→20:39)
[2020-10-10] MEDS: ASCORBIC ACID 500 MG TABLET PO SCH (08:24)
[2020-10-10] MEDS: TAMSULOSIN HCL 0.4 MG CAP.SR.24H PO SCH ×2 (08:24→16:03)
[2020-10-10] MEDS: METFORMIN HCL 500 MG TABLET PO SCH (08:24)
[2020-10-10] MEDS: DIVALPROEX SPRINKLE 125 MG CAP.SPRINK PO SCH ×4 (08:24→20:39)
[2020-10-10] MEDS: ASPIRIN 81 MG TAB.CHEW PO SCH (08:24)
[2020-10-10] MEDS: RIVAROXABAN 10 MG TABLET PO SCH (08:26)
[2020-10-10] MEDS: MONTELUKAST SODIUM 10 MG TABLET PO SCH (08:26)
[2020-10-10] MEDS: LISINOPRIL 10 MG TABLET PO SCH (08:27)
[2020-10-10] MEDS: Z GUARD REMEDY PASTE 57 GM TUBE TOP SCH ×2 (08:41→20:39)
[2020-10-10 16:30] VITALS: BP 103/70
--- NOTE | 2020-10-10 16:45 | NUR ---
GPS: PT ON GERICHAIR RESTING. THIS AFTERNOON, PT HAVE EPISODES OF TAPPING THE TABLE AND HALUCINATIONS NOTED, AFTER GIVING THE PM MEDICATIONS, PT BECAME CALM AND TONED DOWN. NO EPISODE OF COMBATIVENESS AT THIS TIME. CRUSHED MEDICATIONS TAKEN WITH VANILLA PUDDING AND TOLERATED WELL. WILL MONITOR PT.
[2020-10-10 20:03] VITALS: BP 101/72
[2020-10-10] MEDS: ATORVASTATIN 40 MG TABLET PO SCH (20:39)
[2020-10-10] MEDS: LATANOPROST OPHT DROP 2.5 ML BOTTLE EACHEYE SCH (20:40)
[2020-10-11] MEDS: CEphaleXIN 500 MG CAPSULE PO SCH (06:07)
[2020-10-11 07:30] VITALS: BP 138/73
[2020-10-11] MEDS: DIVALPROEX SPRINKLE 125 MG CAP.SPRINK PO SCH ×4 (09:13→20:22)
[2020-10-11] MEDS: LISINOPRIL 10 MG TABLET PO SCH (09:13)
[2020-10-11] MEDS: METFORMIN HCL 500 MG TABLET PO SCH (09:16)
[2020-10-11] MEDS: RIVAROXABAN 10 MG TABLET PO SCH (09:16)
[2020-10-11] MEDS: MONTELUKAST SODIUM 10 MG TABLET PO SCH (09:17)
[2020-10-11] MEDS: QUETIAPINE FUMARATE 25 MG TABLET PO SCH ×3 (09:17→20:22)
[2020-10-11] MEDS: TAMSULOSIN HCL 0.4 MG CAP.SR.24H PO SCH ×2 (09:17→16:31)
[2020-10-11] MEDS: ASCORBIC ACID 500 MG TABLET PO SCH (09:17)
[2020-10-11] MEDS: PRIMIDONE 50 MG TABLET PO SCH ×2 (09:17→16:43)
[2020-10-11] MEDS: ASPIRIN 81 MG TAB.CHEW PO SCH (09:17)
[2020-10-11] MEDS: BRIMONIDINE 0.2% OPHT DROP 10 ML BOTTLE OP SCH ×2 (10:13→17:07)
[2020-10-11] MEDS: TIMOLOL MALEATE 0.5% OPHT DROP 5 ML BOTTLE OP SCH ×2 (10:13→17:08)
[2020-10-11] MEDS: Z GUARD REMEDY PASTE 57 GM TUBE TOP SCH ×2 (10:14→20:23)
[2020-10-11] MEDS: NITROFURANTOIN/NITROFURAN MAC 100 MG CAPSULE PO SCH ×2 (10:17→20:22)
--- NOTE | 2020-10-11 11:56 | NUR ---
GPS: Pt will be discharged tomorrow. with order of covid test, done today and pt tolerated it well. will wait for the reuslt.
[2020-10-11] MEDS ORDERED: CEphaleXIN 500 MG CAPSULE PO SCH (14:00)
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
--- NOTE | 2020-10-11 14:51 | NUR ---
ADITYA Family Contact: ADITYA spoke with patient's , Myrna ([phone]) and daughter, Vivi ([phone]) and informed them of [facility] ([phone]) decision of not accepting the patient back. [facility] [place] refereed patient to a facility [facility], however family is not agreeable as this is [place] hours away from them. SW advised that we can coordinate such last minute a facility here in the [place]. Myrna and Vivi are more agreeable with this idea. SW refereed patient's packet to [facility] ([phone]) and patient got accepted. SW informed patient's and daughter of patients acceptance to [facility] and they are both agreeable.
--- NOTE | 2020-10-11 15:09 | NUR ---
ADITYA SNF Referral: ADITYA faxed patient's referral packet to [facility] [address] [place] [address] ([phone] [phone]) and patient is accepted for placement.
[2020-10-11 16:05] VITALS: BP 116/74
[2020-10-11 20:00] VITALS: BP 101/60
[2020-10-11] MEDS: ATORVASTATIN 40 MG TABLET PO SCH (20:22)
[2020-10-11] MEDS: LATANOPROST OPHT DROP 2.5 ML BOTTLE EACHEYE SCH (20:22)
--- NOTE | 2020-10-11 21:06 | NUR ---
AAOX1 Asleep upon initial rounds. Arousable to name. Compliant with meds. Confused and disoriented. Calm and cooperative. No aggresive behavior noted. Tolerated po meds well. VSS. Incontinent of bowel and bladder. No BM this shift. Kept clean and dry. Will monitor patient. All needs attended.
--- NOTE | 2020-10-12 06:30 | NUR ---
End of shift notes: Quiet night. Had a 10 1/2 hrs of sleep. No behavioral activity noted. Incontinent of urine x2. Kept clean and dry. No acute distress noted.
[2020-10-12 07:30] VITALS: BP 122/60
--- NOTE | 2020-10-12 08:36 | NUR ---
SW Discharge Note: Patient will be discharged to residential [facility] [place] [address] ([phone]) via Ambulance transportation at 11:00am today. Record Retrieval Specialist spoke with Karina, Seconds Handler at [facility] ([phone]), and he confirmed that patient will be accepted at their facility today. Patient is alert and oriented x2. Patient is not able to plan for self-care at this time but is willing to accept care provided for him at the facility. Patient denies suicidal or homicidal ideation. Patient is aware and agreeable with discharge plans. Patient presents with appropriate mood and congruent affect. Patient will follow-up with Psychiatrist Dr. Jaquez and Factory Engineer Dr. Diaz at [facility]. Patients daughter, Vivi ([phone]) is aware and agreeable with discharge plans. Patients , Myrna ([phone]) is aware and agreeable with discharge plans.
[2020-10-12] MEDS: METFORMIN HCL 500 MG TABLET PO SCH (09:04)
[2020-10-12] MEDS: PRIMIDONE 50 MG TABLET PO SCH (09:04)
[2020-10-12] MEDS: MONTELUKAST SODIUM 10 MG TABLET PO SCH (09:04)
[2020-10-12] MEDS: DIVALPROEX SPRINKLE 125 MG CAP.SPRINK PO SCH ×2 (09:04→12:36)
[2020-10-12 09:05] VITALS: BP 122/60
[2020-10-12] MEDS: LISINOPRIL 10 MG TABLET PO SCH (09:05)
[2020-10-12] MEDS: ASPIRIN 81 MG TAB.CHEW PO SCH (09:05)
[2020-10-12] MEDS: ASCORBIC ACID 500 MG TABLET PO SCH (09:05)
[2020-10-12] MEDS: NITROFURANTOIN/NITROFURAN MAC 100 MG CAPSULE PO SCH (09:06)
[2020-10-12] MEDS: QUETIAPINE FUMARATE 25 MG TABLET PO SCH (09:06)
[2020-10-12] MEDS: TAMSULOSIN HCL 0.4 MG CAP.SR.24H PO SCH (09:06)
[2020-10-12] MEDS: RIVAROXABAN 10 MG TABLET PO SCH (09:06)
[2020-10-12] MEDS: Z GUARD REMEDY PASTE 57 GM TUBE TOP SCH (09:17)
[2020-10-12] MEDS: TIMOLOL MALEATE 0.5% OPHT DROP 5 ML BOTTLE OP SCH (09:17)
[2020-10-12] MEDS: BRIMONIDINE 0.2% OPHT DROP 10 ML BOTTLE OP SCH (09:17)
--- NOTE | 2020-10-12 14:03 | NUR ---
GPS: Pt is discharged to [facility] via ambulance. Pt is oriented to self only. no aggitation, no distress noted. vital signs stable. report was given to JOANNE Thompson. all belongings returned. pt was not able to sign paperwork.
== END 2020-10-12 14:50 | DRG 885 ==
LOC: EDBD 19:23 → ER 19:23 → GPS 23:55
PROVIDERS: ADMIT Psychiatry & Neurology Psychiatry; ATTEND Nurse Practitioner Family
DX: F29 Unspecified psychosis not due to a substance or known physiological condition (principal); F23 Brief psychotic disorder; N39.0 Urinary tract infection, site not specified; F03.91 Unspecified dementia, unspecified severity, with behavioral disturbance; Z16.12 Extended spectrum beta lactamase (ESBL) resistance; F25.9 Schizoaffective disorder, unspecified; E78.5 Hyperlipidemia, unspecified; I25.10 Atherosclerotic heart disease of native coronary artery without angina pectoris; Z95.1 Presence of aortocoronary bypass graft; E11.9 Type 2 diabetes mellitus without complications; Z20.822 Contact with and (suspected) exposure to COVID-19; Z73.6 Limitation of activities due to disability; B96.20 Unspecified Escherichia coli [E. coli] as the cause of diseases classified elsewhere; N40.0 Benign prostatic hyperplasia without lower urinary tract symptoms; Z79.01 Long term (current) use of anticoagulants; Z86.73 Personal history of transient ischemic attack (TIA), and cerebral infarction without residual deficits; Z79.84 Long term (current) use of oral hypoglycemic drugs
CPT/HCPCS: 36415; 70030-TC; 80164; 84443; 85025; 87077; 87086; 93005; 97161; A4663; G0480; J2060; J3230